=== PATIENT | female | born 1970 | race American Indian/Alaskan Native ===

== ENCOUNTER 2017-10-02 10:06 | Outpatient (CLI) | payer BC ==
--- NOTE | 2017-10-02 14:37 | XRay Report ---
PELVIS RADIOGRAPH INDICATION: Sclerotic bones. COMPARISON: 08/13/2017 and 02/22/2010. FINDINGS: An AP pelvic radiograph again demonstrates intact pelvic bony articulation. 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 However, imaged lower lumbar spine and femur may appear slightly more sclerotic versus technical. Nonobstructive bowel gas pattern. 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 However, mild interval progression of lower lumbar degenerative changes with questionable slight increased lower lumbar and femoral sclerosis versus technical difficult to reliably differentiate at this time. If strongly suspected pathologic, metabolic or metastatic etiologies may be further evaluated with additional imaging as MRI or nuclear medicine bone scan, as appropriate. Thank you for the opportunity to participate in this patient's care.
== END 2017-10-02 10:07 | disposition home or self-care (01) ==
LOC: XRAY 10:06
PROVIDERS: ATTEND Internal Medicine
DX: M85.38 Osteitis condensans, other site (principal); M47.896 Other spondylosis, lumbar region; M89.9 Disorder of bone, unspecified
CPT/HCPCS: 72170